=== PATIENT | female | born 1955 | race Two or more races ===

== ENCOUNTER 2016-05-31 02:16 | Emergency (ER) | payer MEDICAID ==
[~2016-05-31] VITALS: Ht 162.6 cm; Wt 78.0 kg
[~2016-05-31 02:16] MED LIST: PREG50CA PO; TRAM50TA2 PO
--- NOTE | 2016-05-31 02:45 | NUR ---
PT AMBULAOTRY TO ER BED 4 C/O LOWER BACK PAIN, ABD PAIN W/ NAUSEA, SORE THROAT X 5 DAYS. PT AOX3 RR EVEN AND UNLABORED. NO SOB NOTED. NAD NOTED. NO NVD AT THIS TIME. PT NOT DIAPHORETIC. PT GOWNED AND PLACED ON MONITOR WAITING FOR MD HARO.
[2016-05-31] MEDS ORDERED: ONDANSETRON HCL/PF 4 MG/2 ML VIAL ONE (03:24)
[2016-05-31] MEDS ORDERED: IV SET PRIMARY 1 EA INFUS.SET MC ONE (03:24)
[2016-05-31] MEDS ORDERED: MORPHINE SULFATE INJ 4 MG/ML DISP.SYRIN ONE ×2 (03:24→04:04)
[2016-05-31] MEDS ORDERED: IV NS 0.9% 1,000 ML ONE (03:24)
[2016-05-31] MEDS ORDERED: MORPHINE SULFATE INJ 2 MG/ML DISP.SYRIN IV ONE ×2 (03:30→04:30)
[2016-05-31] MEDS ORDERED: ONDANSETRON HCL/PF 4 MG/2 ML VIAL IVP ONE (03:30)
[2016-05-31] MEDS ORDERED: IV NS 0.9% 1,000 ML BAG IV ONE (03:30)
[2016-05-31 03:33] LABS: APPEARANCE,URINE CLEAR (CLEAR); BILIRUBIN,URINE NEGATIVE (NEGATIVE); BLOOD, URINE 1+ Ery/uL (NEGATIVE); COLOR,URINE YELLOW (YELLOW); KETONES,URINE NEGATIVE (NEGATIVE); LEUKOCYTE ESTERASE ,URINE NEGATIVE (NEGATIVE); NITRITE, URINE NEGATIVE (NEGATIVE); PH,URINE 6.5 (5.0-8.0); PROTEIN,URINE NEGATIVE (NEGATIVE); UGLUCOSE NEGATIVE (NEGATIVE); UROBILINOGEN,URINE 0.2 EU/dL (0.2)
[2016-05-31 03:34] LABS: BASOPHILS % (AUTO) 0.3 % (0.0-2.0); EOSINOPHILS # (AUTO) 0.2 /CMM (0.0-0.7); EOSINOPHILS % (AUTO) 1.3 % (0.0-6.0); HEMATOCRIT 41 % (33-45); HEMOGLOBIN 13.9 g/dL (11.5-14.8); LYMPHOCYTES # (AUTO) 3.7 /CMM (0.8-4.8); LYMPHOCYTES % (AUTO) 26.6 % (20.0-44.0); MEAN CORPUSCULAR HEMOGLOBIN 30 PG (26.0-33.0); MEAN CORPUSCULAR HGB CONC 34 g/dl (31.0-36.0); MEAN CORPUSCULAR VOLUME 88 fL (82-100); MONOCYTES # (AUTO) 0.3 /CMM (0.1-1.30); MONOCYTES % (AUTO) 2.4 % (2.0-12.0); NEUTROPHILS # (AUTO) 9.8 /CMM (1.8-8.9); NEUTROPHILS % (AUTO) 69.4 % (43.0-81.0); PLATELET COUNT (AUTO) 338 /CMM (150-450); RDW COEFFICIENT OF VARIATION 12.9 (11.5-15.0); RED BLOOD CELL COUNT(AUTO) 4.66 MIL/uL (4.0-5.2); WHITE BLOOD COUNT (AUTO) 14.1 K/uL (4.3-11.0)
--- NOTE | 2016-05-31 03:40 | NUR ---
PT TO CT.
[2016-05-31 03:41] LABS: CALCIUM, SERUM 8.6 mg/dL (8.5-10.1); CARBON DIOXIDE 30 mmol/L (21-32); CHLORIDE 104 mmol/L (98-107); CREATININE 0.8 mg/dL (0.6-1.3); GFR 73 mL/min (>60); GLUCOSE 107 mg/dL (74-106); POTASSIUM 4.1 mmol/L (3.5-5.1); SODIUM SERUM 141 mmol/L (136-145); UREA NITROGEN, BLOOD 22 mg/dL (7-18)
[2016-05-31 03:47] LABS: ALANINE AMINOTRANSFERASE 33 U/L (12-78); ALBUMIN 3.8 g/dL (3.4-5.0); ALKALINE PHOSPHATASE 76 U/L (46-116); ASPARTATE AMINOTRANSFERASE 14 U/L (15-37); BILIRUBIN,DIRECT 0.1 mg/dL (0.0-0.2); BILIRUBIN,TOTAL 0.4 mg/dL (0.2-1.0); LIPASE 139 U/L (73-393); TOTAL PROTEIN, SERUM 7.7 g/dL (6.4-8.2)
[2016-05-31 03:47] LABS: ADD URINE CULTURE NO; BACTERIA,URINE None seen /HPF (None Seen); SQUAMOUS EPITHELIAL CELL,UR Few /HPF (None Seen); WBC,URINE 0-2 /HPF (0-3)
[2016-05-31 03:49] LABS: TROPONIN I < 0.017 ng/mL (0.00-0.056)
--- NOTE | 2016-05-31 03:54 | NUR ---
PT RETURNED FROM CT.
--- NOTE | 2016-05-31 04:03 | NUR ---
PT C/O ABD PAIN, VERBAL ORDERS PER HARRY TO GIVE IVP MORPHINE 4MG ONE TIME NOW.
[2016-05-31] MEDS ORDERED: LIDOCAINE VISCOUS 2% UD 15 ML UDC ONE (04:22)
[2016-05-31] MEDS ORDERED: MAG HYDROX/AL HYDROX/SIMETH 30 ML UDC ONE (04:22)
[2016-05-31] MEDS ORDERED: MAG HYDROX/AL HYDROX/SIMETH 30 ML UDC PO ONE (04:30)
[2016-05-31] MEDS ORDERED: ONDANSETRON HCL/PF 4 MG/2 ML VIAL IV ONE (04:30)
[2016-05-31] MEDS ORDERED: LIDOCAINE VISCOUS 2% UD 15 ML UDC MM ONE (04:30)
[2016-05-31 05:23] VITALS: BP 148/89
--- NOTE | 2016-05-31 05:24 | NUR ---
IV removed. Catheter intact and site benign. Pressure and 4x4 applied to site. No bleeding noted. ed at bedside for translation, Patient discharged to home in stable condition. Written and verbal after care instructions given. Patient verbalizes understanding of instruction. ambulatory with a steady gait
== END 2016-05-31 05:25 | disposition home or self-care (01) ==
LOC: ER 02:17
DX: K21.9 Gastro-esophageal reflux disease without esophagitis (principal); R10.84 Generalized abdominal pain; M19.90 Unspecified osteoarthritis, unspecified site; G47.00 Insomnia, unspecified; G56.00 Carpal tunnel syndrome, unspecified upper limb; G43.909 Migraine, unspecified, not intractable, without status migrainosus; G89.29 Other chronic pain; Z90.710 Acquired absence of both cervix and uterus
CPT/HCPCS: 36415; 71010; 74176; 80048; 80076; 81001; 83690; 84484; 85025; 93005; 96361; 96374; 96375; 99285; A4606; J2270 ×2; J2405; J7030; Z7610; 81000-TC

== ENCOUNTER 2017-04-27 11:33 | Emergency (ER) | payer MEDICAID ==
[~2017-04-27] VITALS: Ht 162.6 cm; Wt 74.8 kg
[2017-04-27 11:35] VITALS: BP 134/78
[2017-04-27] MEDS: IBUPROFEN 600 MG TABLET PO ONE (12:25)
[2017-04-27] MEDS ORDERED: IBUPROFEN 600 MG TABLET PO ONE (12:25)
== END 2017-04-27 12:59 | disposition home or self-care (01) ==
LOC: ER 11:35
DX: S92.511A Displaced fracture of proximal phalanx of right lesser toe(s), initial encounter for closed fracture (principal); G47.00 Insomnia, unspecified; G56.00 Carpal tunnel syndrome, unspecified upper limb; G89.29 Other chronic pain; G43.909 Migraine, unspecified, not intractable, without status migrainosus; M19.90 Unspecified osteoarthritis, unspecified site; Z90.710 Acquired absence of both cervix and uterus; W01.0XXA Fall on same level from slipping, tripping and stumbling without subsequent striking against object, initial encounter; Y93.89 Activity, other specified; Y92.89 Other specified places as the place of occurrence of the external cause; Y99.8 Other external cause status
CPT/HCPCS: 73660-TC; A4606; Z7610

== ENCOUNTER 2018-12-14 08:49 | Emergency (ER) | payer MEDICARE, OTHER ==
[~2018-12-14] VITALS: Ht 157.5 cm; Wt 81.6 kg
--- NOTE | 2018-12-14 09:15 | NUR ---
PT CAME INTO THE ED C/O WORSENING BACK AND LEFT UPPER EXTREMITY PAINX 2 WEEKS,DENIES TRAUMA. PT AAOX4, VSS, BREATHING EVEN ANFD UNLABORED W/ NO ACUTE DISTRESS NOTED ON ROOM AIR. PT CONNECTED TO THE MONITOR
[2018-12-14] MEDS ORDERED: HYDROCODONE/APAP 10/325MG 1 EA TABLET PO ONE (10:00)
[2018-12-14] MEDS ORDERED: KETOROLAC TROMETHAMINE INJ 60 MG/2 ML VIAL IM ONE ×2 (10:00→10:02)
[2018-12-14] MEDS ORDERED: HYDROCODONE/APAP 10/325MG 1 EA TABLET ONE (10:03)
--- NOTE | 2018-12-14 10:40 | NUR ---
PT IN A HURRY TO LEAVE FOR ANOTHER DR'S APPT. PT DIDNT WANT TO WAIT FOR SLING.
--- NOTE | 2018-12-14 11:22 | NUR ---
Patient discharged to home in stable condition. Written and verbal after care instructions given. Patient verbalizes understanding of instruction.
[2018-12-14 11:30] VITALS: BP 138/87
== END 2018-12-14 11:30 | disposition home or self-care (01) ==
LOC: ER 08:50
DX: M25.512 Pain in left shoulder (principal); G89.29 Other chronic pain; G43.909 Migraine, unspecified, not intractable, without status migrainosus; M54.30 Sciatica, unspecified side; G47.00 Insomnia, unspecified; Z90.710 Acquired absence of both cervix and uterus; Z79.899 Other long term (current) drug therapy
CPT/HCPCS: 96372; 99283; J1885